=== PATIENT | female | born 1960 | race Caucasian/White ===

== ENCOUNTER 2023-07-11 09:37 | Emergency (ER) | payer BC, SELFPAY ==
[2023-07-11 09:49] VITALS: BP 155/99; PULSE 64; RESP 16; TEMP 36.9; O2SAT 100; BMI 17.0
--- NOTE | 2023-07-11 10:15 | ED_ITS ---
HPI - Female Genitourinary General Time Seen by Provider: 10:07 Date Seen: 07/11/23 Chief complaint: Urogenital Problems, Female Stated complaint: post-surg issue with catheter Time Seen by Provider: 07/11/23 10:07 Source: patient and RN notes reviewed Mode of arrival: ambulatory Limitations: no limitations History of Present Illness HPI Narrative: Patient is a 62-year-old female that is coming in with an episode of urinary leakage around her catheter in some blood in her underwear. 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 She did come home yesterday. She went home with a Rodriguez catheter in place. She is seen some blood in the catheter. She went to sit down to have a bowel movement on the toilet this morning, was not pushing or straining, noted urine leaking out around the catheter and then noted some blood in her underwear. She is really having no pain, has not had any significant postoperative pain. She has had no fevers. She will not know the tissue results until early next week. She is also wondering if the catheter tubing is too long, does coil up when she puts the leg bag on. Related Data Allergies Allergy/AdvReac Type Severity Reaction Status Date / Time Penicillins Allergy Verified 07/11/23 09:48 Review of Systems Narrative: As per HPI. PFSH PFS Social History Smoking Status: Current every day smoker What tobacco products do you use: cigarettes Smoking packs per day: 0.25 Smoking cigarettes per day: 5.0 Do you use any of these nicotine containing products: None Second hand tobacco smoke exposure: Yes How often do you have a drink containing alcohol: 4 or more times a week How many standard drinks containing alcohol do you have on a typical day: 1 or 2 How often do you have six or more drinks on one occasion: Never AUDIT-C Alcohol total score: 4 Non-prescribed substance use: denies use service: No Exam Const: Vital Signs, click to edit/add: Vital Signs - 24 hr 07/11/23 09:49 Temperature 98.4 F Pulse Rate [Pulse Oximeter] 64 Respiratory Rate 16 Blood Pressure [Ri ght Upper Arm] 155/99 H Pulse Oximetry 100 Oxygen Delivery Me thod Room Air Somewhat anxious 62-year-old female but certainly most pleasant seen in exam room 2. She is lying in the bed, alert, interactive, no apparent distress and very well kept. Sclera clear, face atraumatic, speaking in complete sentences. Lungs are clear, good air entry, no wheezing crackles. CV regular rate and rhythm, no murmur, normal S1-S2. Abdomen is soft, no rebound or guarding, no organomegaly. She has Rodriguez catheter in place, genitalia appear normal, no external lesions or cause for concern for any external bleeding. There is light yellow urine in the bag with what appears to be some small red cell clots and some blood. Documenting provider has reviewed patient's vital signs: yes Course Course ED Course: This sounds like this patient had 1 episode of possibly functional urine leakage with sitting on the toilet. She appears to be draining right now. Will have nursing staff do bladder scan and then just irrigate the Rodriguez. Reviewed with patient that sometimes with catheters there can be functional oppositional issues. She has only had 1 episode of draining around the catheter. Occasionally we run into patients who may need a different balloon size or different fully size. I am not seen that is the case for her but may be a possibility if she continues to have issues. This catheter is not going to be in place long-term. Right now I am not seeing anything that is concerning me. Reevaluation(s) Time of Reevaluation #1: 11:11 Reevaluation #1: Nursing staff was able to adjust her catheter so the tubing was not so long. There were only 73 mL of urine in the bladder, not retaining. Flushing was don e, no concerns. Patient is feeling better. She understands that there is the very definite possibility of oppositional changes of the balloon of the catheter. She may note that she might urinate when she is seated on the toilet. If she is having a lot of leakage issues, she should contact Urology. Otherwise continue to follow postoperative recommendations such as fever, abdominal pain, obstructed catheter. Vital Signs Vital signs: Initial Vital Signs Temperature 98.4 F 07/11/23 09:49 Temperature Source Temporal Artery Scan 07/11/23 09:49 Pulse Rate 64 10 09:49 Pulse Rhythm Regular 07/11/23 09:49 Respiratory Rate 16 07/11/23 09:49 Blood Pressure 155/99 H 07/11/23 09:49 Blood Pressure Mean 117 H 07/11/23 09:49 Blood Pressure Position Supine 07/11/23 09:49 Pulse Oximetry 100 07/11/23 09:49 Oxygen Delivery Method Room Air 07/11/23 09:49 Vital Signs Temperature 98.4 F 07/11/23 09:49 Pulse Rate 64 07/11/23 09:49 Respiratory Rate 16 07/11/23 09:49 Blood Pressure 155/99 H 07/11/23 09:49 Pulse Oximetry 100 07/11/23 09:49 Oxygen Delivery Method Room Air 07/11/23 09:49 Temperature 98.4 F 07/11/23 09:49 Pulse Rate 64 07/11/23 09:49 Respiratory Rate 16 07/11/23 09:49 Blood Pressure 155/99 H 07/11/23 09:49 Pulse Oximetry 100 07/11/23 09:49 Oxygen Delivery Method Room Air 07/11/23 09:49 Critical Care Time Critical Care Time Critical Care Time: No Discharge Plan Discharge Clinical Impression: Rodriguez catheter problem Patient Disposition: Home, Self-Care Condition: Stable Additional Instructions: Continue to follow your postoperative instructions. If you do note that the catheter becomes obstructed and is not draining, have abdominal pain or fever postoperatively, do need to be re-evaluated. It is possible for you to have some functional oppositional leakage if the catheter balloon does not stay down on the base of the bladder. If you are noticing leakage around the catheter beyond just when you sit on the toilet, need to contact your urologist. Follow Up/Referrals: Shannon Cotto PA-C [Referring] - Stand Alone Forms: [facility] Info Instructions
--- NOTE | 2023-07-11 11:28 | ED.NURSE ---
Catheter irrigated with 30 cc saline and then drained. No discomfort with procedure. Patient also fitted with new leg bag.
== END 2023-07-11 11:32 | disposition home or self-care (01) ==
PROVIDERS: Emergency Provider Family Medicine; PCP Family Medicine
DX: T83.038A Leakage of other urinary catheter, initial encounter (principal)
CPT/HCPCS: 51798; 99282; 99283

== ENCOUNTER 2024-03-28 11:41 | Outpatient (CLI) | payer BC, SELFPAY ==
--- NOTE | 2024-03-28 12:20 | W.ANESCHARGE ---
Anesthesia Charges Start Date/Time Anesthesia Start Date: 03/28/24 Anesthesia Start Time: 12:18 Stop Date/Time Anesthesia Stop Date: 03/28/24 Anesthesia Stop Time: 12:47
--- NOTE | 2024-03-28 12:55 | W.ANESCHARGE ---
Anesthesia Charges Start Date/Time Anesthesia Start Date: 03/28/24 Anesthesia Start Time: 12:18 Stop Date/Time Anesthesia Stop Date: 03/28/24 Anesthesia Stop Time: 12:47
== END 2024-03-28 11:42 | disposition home or self-care (01) ==
LOC: OP CLINIC 11:42
PROVIDERS: PCP Family Medicine; Visit Provider Internal Medicine Gastroenterology
DX: Z12.11 Encounter for screening for malignant neoplasm of colon (principal); Z86.010 Personal history of colon polyps
CPT/HCPCS: 00811; 00812; 45378; J2704